=== PATIENT | female | born 2000 | race Caucasian/White ===

== ENCOUNTER 2020-08-13 20:50 | Emergency (ER) | payer OTHER ==
[~2020-08-13] VITALS: Ht 142.2 cm; Wt 39.0 kg
[2020-08-13] MEDS ORDERED: OMEPRAZOLE20 MG PO (21:02)
[2020-08-13] MEDS ORDERED: SUCRALFATE1 GM/10 ML (21:02)
== END 2020-08-13 23:34 | disposition home or self-care (01) ==
LOC: ER 20:50
DX: S31.42XA Laceration with foreign body of vagina and vulva, initial encounter (principal); N89.8 Other specified noninflammatory disorders of vagina; L29.8 Other pruritus; T49.8X5A Adverse effect of other topical agents, initial encounter; Y92.89 Other specified places as the place of occurrence of the external cause